=== PATIENT | female | born 1960 | race American Indian/Alaskan Native ===

== ENCOUNTER 2020-12-08 13:24 | Outpatient (AMBR) | payer MEDICAID, OTHER, SELFPAY ==
--- NOTE | 2020-11-15 18:06 | PT.ODAYNRPT ---
PT Outpatient Daily Note Date of Service: 11/15/20 OP Daily Note Visit Reasons: left leg weakness Outpatient Physical Therapy Treatment Date: 11/15/20 Subjective: About the same as last visit. Doing HEP Objective: See F/S for therex Assessment: Pt is able to do partial body weight squats at about 35% body weight without much difficulty. Requires hand support to ambulate. She used the FWW here in the clinic and the parallel bars to try to lift the L LE and not catch it. Plan: Continue per POC Length of Time (minutes) of Treatment: 30 Minutes Office Procedures PT Procedures PT Date of Service: 11/15/20 Therapeutic Exercise 30 minutes: Yes
--- NOTE | 2020-11-17 17:26 | PT.ODAYNRPT ---
PT Outpatient Daily Note Date of Service: 11/17/20 OP Daily Note Visit Reasons: left leg weakness Outpatient Physical Therapy Treatment Date: 11/17/20 Subjective: About the same as last visit. Doing HEP with mild L quad soreness. Objective: See F/S for therex Assessment: Pt is able to do partial body weight squats at about 35% body weight without much difficulty. Requires hand support to ambulate. She used the FWW here in the clinic and the parallel bars to try to lift the L LE and not catch it. Plan: Continue per POC Length of Time (minutes) of Treatment: 30 Minutes Office Procedures PT Procedures PT Date of Service: 11/15/20 Therapeutic Exercise 30 minutes: Yes PT Procedures PT Date of Service: 11/17/20 Therapeutic Exercise 30 minutes: Yes
--- NOTE | 2020-11-28 18:34 | PTNOTE_ITS ---
PT Outpatient Daily Note Date of Service: 11/28/20 OP Daily Note Visit Reasons: left leg weakness Outpatient Physical Therapy Treatment Date: 11/28/20 Subjective: Pt presents ambulating with FWW. She wants to improve the L ankle movement and strength. Objective: See F/S for therex Assessment: Pt is able to stand erect and extend knees with gait with cues but tends to hunch. Requires hand support to ambulate for balance. She used the FWW here in the clinic and the parallel bars to try to lift the L LE and not catch i t. Plan: Continue per POC Length of Time (minutes) of Treatment: 30 Minutes Office Procedures PT Procedures PT Date of Service: 11/28/20 Therapeutic Exercise 30 minutes: Yes PT Procedures PT Date of Service: 11/15/20 Therapeutic Exercise 30 minutes: Yes PT Procedures PT Date of Service: 11/17/20 Therapeutic Exercise 30 minutes: Yes
--- NOTE | 2020-11-30 16:52 | PT.ODAYNRPT ---
PT Outpatient Daily Note Date of Service: 11/30/20 OP Daily Note Visit Reasons: left leg weakness Outpatient Physical Therapy Treatment Date: 11/30/20 Subjective: Pt presents ambulating with FWW. She wants to improve the L ankle movement and strength. Objective: See F/S for therex Assessment: Improved heel raise height and endurance with reps today. Plan: Continue per POC Length of Time (minutes) of Treatment: 30 Minutes Office Procedures PT Procedures PT Date of Service: 11/28/20 Therapeutic Exercise 30 minutes: Yes PT Procedures PT Date of Service: 11/15/20 Therapeutic Exercise 30 minutes: Yes PT Procedures PT Date of Service: 11/17/20 Therapeutic Exercise 30 minutes: Yes PT Procedures PT Date of Service: 11/30/20 Therapeutic Exercise 30 minutes: Yes
--- NOTE | 2020-12-05 19:41 | PT.ODAYNRPT ---
PT Outpatient Daily Note Date of Service: 12/05/20 OP Daily Note Visit Reasons: left leg weakness Outpatient Physical Therapy Treatment Date: 12/05/20 Subjective: Pt presents ambulating with FWW. She wants to improve the L ankle movement and strength. Objective: See F/S for therex Assessment: Improved heel raise height and endurance with reps today. Plan: Continue per POC Length of Time (minutes) of Treatment: 30 Minutes Office Procedures PT Procedures PT Date of Service: 11/28/20 Therapeutic Exercise 30 minutes: Yes PT Procedures PT Date of Service: 12/05/20 Therapeutic Exercise 30 minutes: Yes PT Procedures PT Date of Service: 11/15/20 Therapeutic Exercise 30 minutes: Yes PT Procedures PT Date of Service: 11/17/20 Therapeutic Exercise 30 minutes: Yes PT Procedures PT Date of Service: 11/30/20 Therapeutic Exercise 30 minutes: Yes
--- NOTE | 2020-12-08 15:30 | PT.ODAYNRPT ---
PT Outpatient Daily Note Date of Service: 12/08/20 OP Daily Note Visit Reasons: left leg weakness Outpatient Physical Therapy Treatment Date: 12/08/20 Subjective: Pt presents ambulating with FWW. She wants to improve the L ankle movement and strength. Objective: See F/S for therex Assessment: Improved heel raise height and endurance with reps today. Seems to be taking higher steps in the parallel bars and can do more laps before needing rest. Plan: Continue per POC Length of Time (minutes) of Treatment: 30 Minutes Office Procedures PT Procedures PT Date of Service: 11/28/20 Therapeutic Exercise 30 minutes: Yes PT Procedures PT Date of Service: 12/05/20 Therapeutic Exercise 30 minutes: Yes PT Procedures PT Date of Service: 12/08/20 Therapeutic Exercise 30 minutes: Yes PT Procedures PT Date of Service: 11/15/20 Therapeutic Exercise 30 minutes: Yes PT Procedures PT Date of Service: 11/17/20 Therapeutic Exercise 30 minutes: Yes PT Procedures PT Date of Service: 11/30/20 Therapeutic Exercise 30 minutes: Yes
== END 2020-12-11 23:59 | disposition home or self-care (01) ==
PROVIDERS: PCP Nurse Practitioner Family; Referring Provider Nurse Practitioner Family; Visit Provider Nurse Practitioner Family
DX: R29.898 Other symptoms and signs involving the musculoskeletal system (principal); R53.1 Weakness; I10 Essential (primary) hypertension; E11.9 Type 2 diabetes mellitus without complications; R26.2 Difficulty in walking, not elsewhere classified
CPT/HCPCS: 97110

== ENCOUNTER 2020-12-28 14:17 | Outpatient (AMBR) | payer MEDICAID, OTHER, SELFPAY ==
--- NOTE | 2020-12-12 19:42 | PTNOTE_ITS ---
PT Outpatient Daily Note Date of Service: 12/12/20 OP Daily Note Visit Reasons: left leg weakness Outpatient Physical Therapy Treatment Date: 12/12/20 Subjective: About the same as last visit Objective: See F/S for therex Assessment: Pt is lifting the L Le better to step over cones and can do partial body weight squatting with good reps. Plan: Continue per POC Length of Time (minutes) of Treatment: 30 Minutes Office Procedures PT Procedures PT Date of Service: 12/12/20 Therapeutic Exercise 30 minutes: Yes
--- NOTE | 2020-12-19 16:08 | PT.ODAYNRPT ---
PT Outpatient Daily Note Date of Service: 12/19/20 OP Daily Note Visit Reasons: left leg weakness Outpatient Physical Therapy Treatment Date: 12/19/20 Subjective: Doing fine, not much change since last visit Objective: See F./S for therex Assessment: Pt is able to lift L LE over cones better with improved WB tolerance on L in stance phase. Plan: Continue per POC Length of Time (minutes) of Treatment: 30 Minutes Office Procedures PT Procedures PT Date of Service: 12/19/20 Therapeutic Exercise 30 minutes: Yes
--- NOTE | 2020-12-22 19:14 | PT.ODAYNRPT ---
PT Outpatient Daily Note Date of Service: 12/22/20 OP Daily Note Visit Reasons: left leg weakness Outpatient Physical Therapy Treatment Date: 12/22/20 Subjective: Doing fine, she can walk better since starting therapy. Objective: See F./S for therex Assessment: Pt is able to lift L LE over cones better with improved WB tolerance on L in stance phase but still ambulates with trunk flexion and knee flexion L>R LE's. Plan: Continue per POC Length of Time (minutes) of Treatment: 30 Minutes Office Procedures PT Procedures PT Date of Service: 12/19/20 Therapeutic Exercise 30 minutes: Yes PT Procedures PT Date of Service: 12/22/20 Therapeutic Exercise 30 minutes: Yes
--- NOTE | 2020-12-28 19:07 | PT.ODAYNRPT ---
PT Outpatient Daily Note Date of Service: 12/28/20 OP Daily Note Visit Reasons: left leg weakness Outpatient Physical Therapy Treatment Date: 12/28/20 Subjective: Doing fine, she can walk better since starting therapy. Going for neck MRI tomorrow. Objective: See F/S for therex Assessment: Pt is able to lift L LE over cones better with improved WB tolerance on L in stance phase but still ambulates with trunk flexion and knee flexion L>R LE's. Plan: Continue per POC Length of Time (minutes) of Treatment: 30 Minutes Office Procedures PT Procedures PT Date of Service: 12/19/20 Therapeutic Exercise 30 minutes: Yes PT Procedures PT Date of Service: 12/22/20 Therapeutic Exercise 30 minutes: Yes PT Procedures PT Date of Service: 12/28/20 Therapeutic Exercise 30 minutes: Yes
== END 2021-01-08 23:59 | disposition home or self-care (01) ==
PROVIDERS: PCP Nurse Practitioner Family; Referring Provider Nurse Practitioner Family; Visit Provider Nurse Practitioner Family
DX: R29.898 Other symptoms and signs involving the musculoskeletal system (principal); R26.2 Difficulty in walking, not elsewhere classified; R53.1 Weakness; I10 Essential (primary) hypertension; E11.9 Type 2 diabetes mellitus without complications
CPT/HCPCS: 97110

== ENCOUNTER 2021-01-30 13:20 | Outpatient (AMBR) | payer MEDICAID, OTHER, SELFPAY ==
--- NOTE | 2021-01-09 17:15 | PT.ODAYNRPT ---
PT Outpatient Daily Note Date of Service: 01/09/21 OP Daily Note Visit Reasons: left leg weakness Outpatient Physical Therapy Treatment Date: 01/09/21 Subjective: Feels a little stronger since starting therapy in her legs and with getting up from a chair Objective: See F/S for therex Assessment: Pt better able to ascend/descend stairs today with hand railing. Plan: Continue per POC Length of Time (minutes) of Treatment: 30 Minutes Office Procedures PT Procedures PT Date of Service: 01/09/21 Therapeutic Exercise 30 minutes: Yes
--- NOTE | 2021-01-11 19:04 | PT.ODS1RPT ---
PT OP Progress/Discharge Note Date of Service: 01/11/21 Progress Note/DC Note Progress Note/Discharge Note: Progress Note Patient Information Visit Reasons: left leg weakness Service Continue Service or Discharge: Continue Service Status Subjective: Pt reports she can walk better and her LE's feel stronger since starting therapy. Objective: L ankle AROM: DF: to 3 deg PF: 45 deg Strength: DF: 4-/5 PF: can do B heel raises x20 Gait: ambulates with 4WW and clears L foot during swing phase. Assessment: Pt has attended 12 visits and made good progress with therapy goals. She has almost met L ankle DF ROM goal and has been ambulating HH distances and from car to building with walker and without catching foot. She would benefit from continued therapy in order to ambulate further, more than 1 [address] and improve DF ROM to more than 5 deg. Plan: Extend POC for 6 more visits Office Procedures PT Procedures PT Date of Service: 01/09/21 Therapeutic Exercise 30 minutes: Yes PT Procedures PT Date of Service: 01/11/21 Therapeutic Exercise 30 minutes: Yes
--- NOTE | 2021-01-16 16:27 | PT.ODAYNRPT ---
PT Outpatient Daily Note Date of Service: 01/16/21 OP Daily Note Visit Reasons: left leg weakness Outpatient Physical Therapy Treatment Date: 01/16/21 Subjective: Pt reports she can walk better and her LE's feel stronger since starting therapy. Objective: See f/S for therex Assessment: She has almost met L ankle DF ROM goal and has been ambulating HH distances and from car to building with walker and without catching foot. She would benefit from continued therapy in order to ambulate further, more than 1 [address] and improve DF ROM to more than 5 deg. Plan: Continue per POC Length of Time (minutes) of Treatment: 30 Minutes Office Procedures PT Procedures PT Date of Service: 01/09/21 Therapeutic Exercise 30 minutes: Yes PT Procedures PT Date of Service: 01/11/21 Therapeutic Exercise 30 minutes: Yes PT Procedures PT Date of Service: 01/16/21 Therapeutic Exercise 30 minutes: Yes
--- NOTE | 2021-01-19 14:36 | PT.ODAYNRPT ---
PT Outpatient Daily Note Date of Service: 01/19/21 OP Daily Note Visit Reasons: left leg weakness Outpatient Physical Therapy Treatment Date: 01/19/21 Subjective: Pt reports her feet don't feel coordinated when she walks Objective: See f/S for therex Assessment: Today pt tried ambulating with 4 point cane today and was cautious and slow. Pt has discontinuous steps on L but can ambulate with cane with fwd trunk lean that she corrects with cues. Plan: Continue per POC Length of Time (minutes) of Treatment: 30 Minutes Office Procedures PT Procedures PT Date of Service: 01/09/21 Therapeutic Exercise 30 minutes: Yes PT Procedures PT Date of Service: 01/11/21 Therapeutic Exercise 30 minutes: Yes PT Procedures PT Date of Service: 01/19/21 Therapeutic Exercise 30 minutes: Yes PT Procedures PT Date of Service: 01/16/21 Therapeutic Exercise 30 minutes: Yes
--- NOTE | 2021-01-23 16:29 | PT.ODAYNRPT ---
PT Outpatient Daily Note Date of Service: 01/23/21 OP Daily Note Visit Reasons: left leg weakness Outpatient Physical Therapy Treatment Date: 01/23/21 Subjective: Pt is willing to walk with cane today Objective: See f/S for therex Assessment: Today pt tried ambulating with 4 point cane today and was cautious and slow. Pt has discontinuous steps on L but can ambulate with cane with fwd trunk lean that she corrects with cues. Pt ambulates with decreased ankle DF and increased hip flexion and short step length. Plan: Continue per POC Length of Time (minutes) of Treatment: 30 Minutes Office Procedures PT Procedures PT Date of Service: 01/09/21 Therapeutic Exercise 30 minutes: Yes PT Procedures PT Date of Service: 01/11/21 Therapeutic Exercise 30 minutes: Yes PT Procedures PT Date of Service: 01/19/21 Therapeutic Exercise 30 minutes: Yes PT Procedures PT Date of Service: 01/23/21 Therapeutic Exercise 30 minutes: Yes PT Procedures PT Date of Service: 01/16/21 Therapeutic Exercise 30 minutes: Yes
--- NOTE | 2021-01-30 19:34 | PT.ODS1RPT ---
PT OP Progress/Discharge Note Date of Service: 01/30/21 Progress Note/DC Note Progress Note/Discharge Note: DC Note Patient Information Visit Reasons: left leg weakness Service Continue Service or Discharge: Discharge Discharge Date: 01/30/21 Status Subjective: Pt is willing to walk with cane today Objective: L aknle AROM: DF: 5 deg PF: 45 deg Strength: DF: 4-/5 deg Heel raises: x20 Assessment: Pt has attended Rx visits and made progress with therapy goals. She has met L ankle DF ROM goal. Today pt tried ambulating with single point cane today and was cautious and slow but steady. Pt has discontinuous steps on L but can ambulate with cane with fwd trunk lean that she corrects with cues. Pt ambulates with decreased ankle DF and increased hip flexion and short step length. Progress has plateaued with goals. She should be able to ambulate with SPC on even surfaces if she is feeling like her balance is steady that day. Plan: D/C with HEP. Office Procedures PT Procedures PT Date of Service: 01/09/21 Therapeutic Exercise 30 minutes: Yes PT Procedures PT Date of Service: 01/11/21 Therapeutic Exercise 30 minutes: Yes PT Procedures PT Date of Service: 01/19/21 Therapeutic Exercise 30 minutes: Yes PT Procedures PT Date of Service: 01/23/21 Therapeutic Exercise 30 minutes: Yes PT Procedures PT Date of Service: 01/16/21 Therapeutic Exercise 30 minutes: Yes PT Procedures PT Date of Service: 01/30/21 Therapeutic Exercise 30 minutes: Yes
== END 2021-02-08 23:59 | disposition home or self-care (01) ==
PROVIDERS: PCP Nurse Practitioner Family; Referring Provider Nurse Practitioner Family; Visit Provider Nurse Practitioner Family
DX: R29.898 Other symptoms and signs involving the musculoskeletal system (principal); R53.1 Weakness; R26.2 Difficulty in walking, not elsewhere classified; I10 Essential (primary) hypertension
CPT/HCPCS: 97110

== ENCOUNTER 2024-10-12 10:29 | Outpatient (RCR) | payer MEDICAID, SELFPAY | END 2024-11-10 23:59 | disposition home or self-care (01) | LOC: CPTX 10:29 | PROVIDERS: PCP Nurse Practitioner Family; Referring Provider Nurse Practitioner Family; Visit Provider Nurse Practitioner Family | DX: Z53.8 Procedure and treatment not carried out for other reasons (principal) ==

== ENCOUNTER → 2024-10-29 | Outpatient (CLI) | payer MEDICAID, SELFPAY ==
--- NOTE | 2024-10-29 13:31 | XR_ITS ---
Examination: Right knee 4 views TECHNIQUE: AP oblique lateral axial right knee 4 views Exam date and time: 05/29/2024 at 1409 hours INDICATIONS: Knee pain 2 years. FINDINGS: Sclerotic areas in the fibular head and neck perhaps old bone infarct Moderate to advanced narrowing medial joint space Moderate osteoarthritis patellofemoral joint lateral joint space No fracture Significant osteopenia IMPRESSION: Moderate to advanced tricompartment osteoarthritis
== END | disposition home or self-care (01) ==
LOC: CDIM 13:23
PROVIDERS: PCP Internal Medicine; Referring Provider Internal Medicine; Visit Provider Internal Medicine
DX: M17.11 Unilateral primary osteoarthritis, right knee (principal)
CPT/HCPCS: 73564

== ENCOUNTER → 2024-12-01 | Outpatient (CLI) | payer MEDICAID, SELFPAY ==
--- NOTE | 2024-12-01 10:30 | XR_ITS ---
Examination: CTA carotids with intravenous contrast CTA brain, head with intravenous contrast. 2-D sagittal, coronal reconstructions. 3-D reconstructions. Exam date and time: December 01, 2024 1044 hours INDICATIONS: Neck pain dizziness 3 years, history aortic aneurysm, weakness in the left extremities left leg beginning 2021 CTDI: vol (mGy) 24.6 DLP: (mGycm) 399 Technique: Multiple CTA axial brain, head carotid images post intravenous contrast injection 75 cc, [id number]. 2-D sagittal, coronal reconstructions. 3-D reconstructions, 3-D post processing including vascular maximum intensity projection images. Low dose protocols were performed. One or more of the following dose reduction techniques were used; automated exposure control, adjustment of the mA and/or KV according to patient size, use of iterative reconstruction technique. Findings: Partial visualization thoracic aortic stent No significant common carotid carotid bifurcation or internal carotid artery stenoses Dominant right vertebral artery No filling of the distal left vertebral artery in the neck No cerebral large vessel arterial occlusions IMPRESSION: No filling of the atretic distal left vertebral artery in the neck, recommend carotid vertebral Doppler sonography to assess for retrograde flow in the left vertebral artery
== END | disposition home or self-care (01) ==
LOC: CCTX 10:18
PROVIDERS: PCP Internal Medicine; Referring Provider Internal Medicine; Visit Provider Internal Medicine
DX: R42 Dizziness and giddiness (principal); R26.89 Other abnormalities of gait and mobility
CPT/HCPCS: 70498; A4649; Q9967

== ENCOUNTER 2024-12-08 13:30 | Outpatient (RCR) | payer MEDICAID, SELFPAY ==
--- NOTE | 2024-12-04 11:35 | PT.OIERPT ---
PT OP Initial Eval Patient Information Outpatient Physical Therapy Treatment Date: 12/04/24 Visit Reasons: weakness of right lower extremity Medical Diagnosis: R29.898 Treatment Dx #1: Right LE Weakness Treatment Dx #2: Abnormal Gait Start of Care: 12/04/24 Date of Onset: 6 months ago Smoking Status Smoking Status: Never smoker Initial Assessment Subjective: Pt is a 64 y/o female reports of right LE pain and weakness up to her knee. Pt's most recent xray showed moderate to severe knee OA. Furthermore, Pt's lumbar spine MRI showed multiple disc where she has seen a surgeon but is unsure if she's surgery candidate. Pt has limitation with walking, standing, chores, self care, cooking, cleaning, and balance. Objective: Right LE AROM: all motions are WFL Right LE MMTs: grossly 3+/5 Sit-Stand Test: 5 reps Assessment: Pt demonstrate right LE weakness leading to difficulty with ADLs and ambulation. 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
== END 2024-12-11 23:59 | disposition home or self-care (01) ==
LOC: CPTX 13:30
PROVIDERS: PCP Nurse Practitioner Family; Referring Provider Nurse Practitioner Family; Visit Provider Nurse Practitioner Family
DX: M79.604 Pain in right leg (principal); R53.1 Weakness; R29.898 Other symptoms and signs involving the musculoskeletal system; M17.11 Unilateral primary osteoarthritis, right knee; R26.89 Other abnormalities of gait and mobility; R26.2 Difficulty in walking, not elsewhere classified
CPT/HCPCS: 97162

== ENCOUNTER 2025-01-08 13:00 | Outpatient (RCR) | payer MEDICAID, SELFPAY ==
--- NOTE | 2024-12-15 11:34 | PT.ODAYNRPT ---
PT Outpatient Daily Note OP Daily Note Outpatient Physical Therapy Treatment Date: 12/15/24 Visit Reasons: weakness of lower extremity Subjective: Pt reports her R knee is bothering her today, although pt is aware that she has R knee bone on bone . Objective: Please see flow sheet for ther ex list. Assessment: Interventions given alternating sitting and standing to maximize pt participation. Plan: Continue with pOC. Length of Time (minutes) of Treatment: 30 Minutes Procedure Charges MCL Initial 30 minutes: Yes
--- NOTE | 2024-12-17 11:31 | PT.ODAYNRPT ---
PT Outpatient Daily Note OP Daily Note Outpatient Physical Therapy Treatment Date: 12/17/24 Visit Reasons: weakness of lower extremity Subjective: Pt's legs are okay. Slight dizziness this morning but not too bad. Objective: Please see flow chart for list of ther ex performed Assessment: slight dizziness reported with retro monster walk and require rest break. Pt is overall progressing with strengthening exercises Plan: Continue with PT Length of Time (minutes) of Treatment: 30 Minutes Procedure Charges MCL Initial 30 minutes: Yes
--- NOTE | 2024-12-22 12:13 | PT.ODAYNRPT ---
PT Outpatient Daily Note OP Daily Note Outpatient Physical Therapy Treatment Date: 12/22/24 Visit Reasons: weakness of lower extremity Subjective: Pt's feeling more dizziness today. Pt prefers to stick to seated exercises Objective: Please see flow chart for list of ther ex performed Assessment: performed seated exercises with good tolerance. Monster walk and side step not performed today due to reported of increase dizziness. Plan: Continue with PT Length of Time (minutes) of Treatment: 30 Minutes Procedure Charges MCL Initial 30 minutes: Yes
--- NOTE | 2024-12-24 11:34 | PT.ODAYNRPT ---
PT Outpatient Daily Note OP Daily Note Outpatient Physical Therapy Treatment Date: 12/24/24 Visit Reasons: weakness of lower extremity Subjective: Pt's less dizzy today and wants to work on standing exercises Objective: Please see flow chart for list of ther ex performed Assessment: able to complete standing exercises today with minimal complaint of dizziness. Plan: Continue with PT Length of Time (minutes) of Treatment: 30 Minutes Procedure Charges Therapeutic Exercise 30 minutes: Yes
--- NOTE | 2024-12-29 15:21 | PT.ODAYNRPT ---
PT Outpatient Daily Note OP Daily Note Outpatient Physical Therapy Treatment Date: 12/29/24 Visit Reasons: weakness of lower extremity Subjective: No new complaints or concerns. Objective: Please see flow sheet for ther ex list. Assessment: Interventions given in sitting to maximize pt participation. Plan: Continue with pOC. Length of Time (minutes) of Treatment: 30 Minutes Procedure Charges MCL Initial 30 minutes: Yes
--- NOTE | 2025-01-05 11:36 | PT.ODAYNRPT ---
PT Outpatient Daily Note OP Daily Note Outpatient Physical Therapy Treatment Date: 01/05/25 Visit Reasons: weakness of lower extremity Subjective: Pt continues to have dizziness but up to do standing exercises today. Objective: Please see flow chart for list of ther ex performed Assessment: tolerate exercises and pace throughout PT session due to dizziness feeling. Plan: Continue with PT Length of Time (minutes) of Treatment: 30 Minutes Procedure Charges Therapeutic Exercise 30 minutes: Yes
--- NOTE | 2025-01-08 13:27 | PT.ODAYNRPT ---
PT Outpatient Daily Note OP Daily Note Outpatient Physical Therapy Treatment Date: 01/08/25 Visit Reasons: weakness of lower extremity Subjective: Pt reports he is doing better today compared to last session. Objective: Please see flow sheet for ther ex list. Assessment: Pt demonstrates increase tolerance with closed chain interventions today indicating progress. Plan: Continue with pOC. Length of Time (minutes) of Treatment: 30 Minutes Procedure Charges MCL Initial 30 minutes: Yes
== END 2025-01-08 23:59 | disposition home or self-care (01) ==
LOC: CPTX 13:00
PROVIDERS: PCP Nurse Practitioner Family; Referring Provider Nurse Practitioner Family; Visit Provider Nurse Practitioner Family
DX: R53.1 Weakness (principal); R26.2 Difficulty in walking, not elsewhere classified; R26.89 Other abnormalities of gait and mobility; R29.898 Other symptoms and signs involving the musculoskeletal system
CPT/HCPCS: 97110

== ENCOUNTER 2025-02-01 14:30 | Outpatient (RCR) | payer MEDICAID, SELFPAY ==
--- NOTE | 2025-01-19 15:03 | PT.ODAYNRPT ---
PT Outpatient Daily Note OP Daily Note Outpatient Physical Therapy Treatment Date: 01/19/25 Visit Reasons: Weakness of lower extremity Subjective: Pt reports she is doing ok, no changes to report at this time. Objective: Please see flow sheet for ther ex list. Assessment: Interventions given alternating sitting and standing to maximize pt participation. Pt requires rest breaks due to fatigue. Plan: Continue with POC. Length of Time (minutes) of Treatment: 30 Minutes Procedure Charges MCL Initial 30 minutes: Yes
--- NOTE | 2025-01-25 15:01 | PT.ODAYNRPT ---
PT Outpatient Daily Note OP Daily Note Outpatient Physical Therapy Treatment Date: 01/25/25 Visit Reasons: Weakness of lower extremity Subjective: No new complaints. Objective: Please see flow sheet for ther ex list. 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 Plan: Continue with pOC. Procedure Charges MCL Initial 30 minutes: Yes
--- NOTE | 2025-02-01 15:07 | PT.ODS1RPT ---
PT OP Progress/Discharge Note Date of Service: 02/01/25 Progress Note/DC Note Progress Note/Discharge Note: Progress Note Patient Information Visit Reasons: Weakness of lower extremity Medical Diagnosis: R29.898 Treatment Dx #1: Right LE Weakness Treatment Dx #2: Abnormal Gait Service Continue Service or Discharge: Continue Service Certification Date Certification Dates: 02/01/25 to 05/04/25 Status Subjective: Pt's legs are feeling okay. Depended upon Pt's dizziness Pt can do more or less. Pt notice lately she's been able to stand, walk, and perform chores a little longer. Pt's right leg is feeling slightly stronger. Pt is being refer out to a ENT for her ears and balance issue soon. Objective: Right LE AROM: all motions are WNL Right LE MMTs: grossly 4-/5 Sit-Stand Test: 7 reps Assessment: Pt is slowly improving with right LE strength and mobility allowing her to perform light ADLs, ambulate, and stand with less limitation. Pt has not met set goals and will continue to benefit from physical therapy to work on endurance and strength; thank you for your referrals. Plan: Continue with PT/POC and add 8 sessions (2 x wk for 4 wks) Procedure Charges MCL Initial 30 minutes: Yes
== END 2025-02-08 23:59 | disposition home or self-care (01) ==
LOC: CPTX 14:30
PROVIDERS: PCP Nurse Practitioner Family; Referring Provider Nurse Practitioner Family; Visit Provider Nurse Practitioner Family
DX: M79.604 Pain in right leg (principal); R26.2 Difficulty in walking, not elsewhere classified; R29.898 Other symptoms and signs involving the musculoskeletal system; R53.1 Weakness; R26.89 Other abnormalities of gait and mobility; R42 Dizziness and giddiness

== ENCOUNTER → 2025-02-16 | Outpatient (CLI) | payer MEDICAID, OTHER, SELFPAY ==
--- NOTE | 2025-02-16 12:45 | XR_ITS ---
Examinations: MRI Brain without intravenous contrast. MRI brain with intravenous contrast MRA brain with intravenous contrast. MRA brain without intravenous contrast MRA neck with intravenous contrast Date and time of exam: February 16, 2025 1255 hrs. Comparison February 12, 2023 Indications: Headaches dizziness for years worse the last 6 months Technique: Multiple axial and sagittal images of the brain have been obtained Siemens high-resolution 1.5 Cortney short bore scanner is utilized. Sagittal sections, T1-weighted, TR 500, TE 14 Axial sections proton density and T2-weighted, TR 3,000, TE 34, TR 3,000, TE 91 Inversion recovery axial images, TR 9,260, TE 111, TI 2,500 Diffusion weighted images, axial sections, TR 4,800, TE 128, B value 1,000 Axial sections, ADC map, TR 4,800, TE 128. Contrast images have been obtained post intravenous 20 cc Gadolinium. T1-weighted axial and coronal images post contrast have been obtained. Angiographic images of neck and brain are obtained pre and post contrast. 3-D post processing performed, including brain, extracranial neck arterial maximum intensity projections Findings: Sellaturcica is not enlarged. The optic chiasm and infundibular stalk are not remarkable. Prepontine and interpeduncular cisterns are not enlarged. No localized enlargement of the medulla or sonu. Fourth ventricle and cerebellar tonsils normal in position. Subacute hemorrhage is not seen. Fourth ventricle is midline. Mass in the cerebellopontine angle region is not evident. 7th and 8th nerve complexes exhibits symmetry. Globes are symmetrical with no retro-orbital mass. Increased white matter signal prominent Diffusion-weighted images demonstrateno focus of restricted diffusion. Mass-effect upon the ventricular system is not identified. Abnormal contrast enhancement is not seen. MRA brain carotid images no significant carotid stenoses, mild to moderate diffuse cerebral arterial irregularity Impression: Negative for acute hemorrhage mass effect or midline shift No acute infarct Prominent chronic microvascular white matter change No abnormal enhancing cerebellar or cerebral lesions Mild to moderate diffuse cerebral arterial irregularity
== END | disposition home or self-care (01) ==
LOC: SMRI 11:59
PROVIDERS: PCP Internal Medicine; Referring Provider Internal Medicine; Visit Provider Internal Medicine
DX: R90.82 White matter disease, unspecified (principal)
CPT/HCPCS: 70546; 70548; 70553; A9579

== ENCOUNTER 2025-03-04 11:30 | Outpatient (RCR) | payer MEDICAID, SELFPAY ==
--- NOTE | 2025-02-09 11:35 | PT.ODAYNRPT ---
PT Outpatient Daily Note OP Daily Note Outpatient Physical Therapy Treatment Date: 02/09/25 Visit Reasons: weakness of lower extremity Subjective: Pt feels really dizzy today. Pt will like to do more seated exercises. Her dizziness started ~ 3 days ago. Objective: Please see flow chart for list of ther ex performed Assessment: tolerate all seated exercises. standing exercises hold due to dizziness symptoms Plan: Continue with PT Length of Time (minutes) of Treatment: 30 Minutes Procedure Charges MCL Initial 30 minutes: Yes
--- NOTE | 2025-03-02 12:57 | PT.ODAYNRPT ---
PT Outpatient Daily Note OP Daily Note Outpatient Physical Therapy Treatment Date: 03/02/25 Visit Reasons: weakness of lower extremity Subjective: Pt's legs are feeling weaker since she has been doing much at home. Pt is dizzy today and wants to go easy. Objective: Please see flow chart for list of ther ex performed Assessment: pacing throughout session today due to patient feeling dizzy. Pt was able to complete instructed exercises safely today Plan: Continue with PT Length of Time (minutes) of Treatment: 30 Minutes Procedure Charges MCL Initial 30 minutes: Yes
--- NOTE | 2025-03-04 13:17 | PT.ODAYNRPT ---
PT Outpatient Daily Note OP Daily Note Outpatient Physical Therapy Treatment Date: 03/04/25 Visit Reasons: weakness of lower extremity Subjective: Pt reports her dizziness has been worse these last few days. Objective: Please see flow sheet for ther ex list. Assessment: Pt unsteady with initial standing from chair due to dizzness. Plan: Continue with POC. Length of Time (minutes) of Treatment: 30 Minutes Procedure Charges MCL Initial 30 minutes: Yes
== END 2025-03-10 23:59 | disposition home or self-care (01) ==
LOC: CPTX 11:30
PROVIDERS: PCP Nurse Practitioner Family; Referring Provider Nurse Practitioner Family; Visit Provider Nurse Practitioner Family
DX: M79.604 Pain in right leg (principal); R53.1 Weakness; R26.2 Difficulty in walking, not elsewhere classified; R26.89 Other abnormalities of gait and mobility; M17.11 Unilateral primary osteoarthritis, right knee

== ENCOUNTER → 2025-03-16 | Outpatient (CLI) | payer MEDICAID, SELFPAY ==
--- NOTE | 2025-03-16 12:49 | XR_ITS ---
Examination: Lumbar spine 7 views TECHNIQUE: AP, lateral, coned lateral lower lumbar spine, standing lateral flexion, standing lateral extension, FORMAN, TUNISIAN lumbar spine 7 views Exam date and time: March 16, 2025 1331 hours INDICATIONS: Low back pain several years. FINDINGS: Severe osteopenia No lumbar fracture Mild to moderate diffuse lumbar disc narrowing Grade 1 anterolisthesis L5 on S1 Markedly reduced range of motion between flexion and extension IMPRESSION: Mild to moderate diffuse lumbar degenerative disc disease
[2025-03-16 13:15] LABS: Blood Urea Nitrogen 25 mg/dL (9-23); Creatinine (Component) 1.2 mg/dL (0.6-1.3); eGFR 51 See Note
== END | disposition home or self-care (01) ==
LOC: COPL 12:19
PROVIDERS: Surgery Vascular Surgery; PCP Physician Assistant; Referring Provider Physician Assistant; Visit Provider Radiology Diagnostic Radiology
DX: M51.369 Other intervertebral disc degeneration, lumbar region without mention of lumbar back pain or lower extremity pain (principal); I71.019 Dissection of thoracic aorta, unspecified
CPT/HCPCS: 36415; 72114; 82565; 84520

== ENCOUNTER 2025-03-30 11:30 | Outpatient (RCR) | payer MEDICAID, SELFPAY ==
--- NOTE | 2025-03-11 12:42 | PTNOTE_ITS ---
PT Outpatient Daily Note OP Daily Note Outpatient Physical Therapy Treatment Date: 03/11/25 Visit Reasons: lower extremity weakness Subjective: Pt reports she is doing ok, says dizziness is mild today. Objective: Please see flow sheet for ther ex list. Assessment: Progression of intervention slow, pt c/o increase dizziness with dynamic exercises. 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 Plan: Continue with POC. Length of Time (minutes) of Treatment: 30 Minutes Procedure Charges MCL Initial 30 minutes: Yes
--- NOTE | 2025-03-16 12:00 | PT.ODAYNRPT ---
PT Outpatient Daily Note OP Daily Note Outpatient Physical Therapy Treatment Date: 03/16/25 Visit Reasons: lower extremity weakness Subjective: Pt is dizzy today. Pt is always dizzy and is pending ENT consult. Objective: Please see flow chart for list of ther ex perfomed Assessment: frequent rest break today due dizziness spell. Pt advised to seek further medical attention regarding dizziness since it's limiting progression with physical therapy Plan: Continue with PT Length of Time (minutes) of Treatment: 30 Minutes Procedure Charges MCL Initial 30 minutes: Yes
--- NOTE | 2025-03-18 11:55 | PT.ODAYNRPT ---
PT Outpatient Daily Note OP Daily Note Outpatient Physical Therapy Treatment Date: 03/18/25 Visit Reasons: lower extremity weakness Subjective: Pt's legs are stronger. Pt still has dizzy spell intermittently. Objective: Please see flow chart for list of ther ex performed Assessment: improved sit to stand form with minimal use of hands and able to complete exercises faster indicating LE endurance improvement. Plan: Continue with PT Length of Time (minutes) of Treatment: 30 Minutes Procedure Charges MCL Initial 30 minutes: Yes
--- NOTE | 2025-03-23 13:10 | PT.ODAYNRPT ---
PT Outpatient Daily Note OP Daily Note Outpatient Physical Therapy Treatment Date: 03/23/25 Visit Reasons: lower extremity weakness Subjective: Pt c/o moderate dizziness today. Objective: Please see flow sheet for ther ex list. Assessment: Interventions completed with rest breaks in between reps due to worsening dizziness with activity. Plan: Continue with POC. Length of Time (minutes) of Treatment: 30 Minutes Procedure Charges MCL Initial 30 minutes: Yes
--- NOTE | 2025-03-25 12:52 | PT.ODAYNRPT ---
PT Outpatient Daily Note OP Daily Note Outpatient Physical Therapy Treatment Date: 03/25/25 Visit Reasons: lower extremity weakness Subjective: Pt has been more dizzy lately. Pt is unsure of her ENT appt; it's still pending. Objective: Please see flow chart for list of ther ex performed Assessment: multiple dizzy spell noted in today's session where most exercises was performed seated. Plan: Continue with PT Length of Time (minutes) of Treatment: 30 Minutes Procedure Charges MCL Initial 30 minutes: Yes
--- NOTE | 2025-03-30 12:45 | PT.ODS1RPT ---
PT OP Progress/Discharge Note Date of Service: 03/30/25 Progress Note/DC Note Progress Note/Discharge Note: DC Note Patient Information Visit Reasons: lower extremity weakness Medical Diagnosis: R29.898 Treatment Dx #1: Right LE Weakness Treatment Dx #2: Abnormal Gait Service Continue Service or Discharge: Discharge Discharge Date: 03/30/25 Status Subjective: Pt's dizziness is getting worse. Pt mentioned that she's been able to do less around the house. Pt has limitation with prolonged walking, standing, and performing chores. Pt has a pending appt with ENT. Objective: Right LE AROM: all motions are WNL Right LE MMTs: grossly 4/5 Sit-Stand Test: 10 reps Assessment: Pt demonstrate improved right LE strength and mobility, however, reports of worsening dizzy spell leading to difficulty with ADLs. At this time Pt will no longer benefit from physical therapy due to plateau towards goals. Pt was instructed on HEP last session and educated to continue exercises to maintain overall mobility. Pt performed all exercises safely, thank you for your referrals. Plan: D/C home with HEP and follow up with MD WAGNER Procedure Charges MCL Initial 30 minutes: Yes
== END 2025-04-10 23:59 | disposition home or self-care (01) ==
LOC: CPTX 11:30
PROVIDERS: PCP Nurse Practitioner Family; Referring Provider Nurse Practitioner Family; Visit Provider Nurse Practitioner Family
DX: M79.604 Pain in right leg (principal); R53.1 Weakness; R26.2 Difficulty in walking, not elsewhere classified; R26.89 Other abnormalities of gait and mobility; R29.898 Other symptoms and signs involving the musculoskeletal system; M17.11 Unilateral primary osteoarthritis, right knee

== ENCOUNTER → 2025-05-17 | Outpatient (CLI) | payer MEDICAID, SELFPAY ==
--- NOTE | 2025-05-17 12:45 | XR_ITS ---
Examination: MRI lumbar spine without contrast Date and time of exam: May 17, 2025 1354 hours Comparison April 01, 2024 INDICATIONS: Low back pain 20 years COMPARISON: 08/02 2024. Technique: Multiple MRI axial and sagittal sections lumbar spine. Sagittal T2-weighted images, TR 3500, TE 118 T1 weighted transverse sections, TR 688 T8.5, T2-weighted sagittal sections T1 weighted sagittal sections TR 621, TE 30 T2 axial sections, TR 4, 190, TE 84. Findings: Grade 1 spondylolisthesis L5 on S1 No lumbar fracture Normal marrow signal lumbar vertebral bodies Moderate disc narrowing at the lower 3 lumbar levels L5-S1 4 mm central lumbar disc bulge, mild left moderate right L5 ganglionic compression secondary to the disc bulge and spondylolisthesis L4-L5 4 mm central lumbar disc bulge L3-L4 3 mm central lumbar disc bulge L2-L3 no disc protrusion L1-L2 no disc protrusion IMPRESSION: L5-S1 4 mm central lumbar disc bulge mild left moderate right L5 ganglionic compression L4-L5 4 mm central lumbar disc bulge. L3-L4 3 mm central lumbar disc bulge
== END | disposition home or self-care (01) ==
LOC: SMRI 12:31
PROVIDERS: PCP Nurse Practitioner Family
DX: M51.370 Other intervertebral disc degeneration, lumbosacral region with discogenic back pain only (principal); M51.360 Other intervertebral disc degeneration, lumbar region with discogenic back pain only; G95.20 Unspecified cord compression
CPT/HCPCS: 72148

== ENCOUNTER → 2025-08-18 | Outpatient (CLI) | payer MEDICAID, SELFPAY ==
--- NOTE | 2025-08-18 11:45 | XR_ITS ---
Examination: MRI brain without intravenous contrast. Date and time of exam: August 18, 2025, 1330 hours, comparison February 16, 2025 INDICATIONS: Frequent falls, severe dizziness beginning 2020, worse the last 7 months Technique: Multiple axial and sagittal images of the brain obtained. Siemens high-resolution 1.5 [place]ney short bore scanners utilized. Sagittal sections, T1-weighted, TR 500, TE 14, are performed. Axial sections proton-density and T2-weighted have been obtained. Inversion recovery axial images, TR 9, 260, TE 111, TI 2500. Diffusion weighted images, axial sections, TR 4800, TE 128, B value 1000 Axial sections, ADC map, TR 4800, TE 128 Findings: Enlargement of the sella turcica is not present. The optic chiasm and infundibular are not remarkable. Prepontine and interpeduncular cisterns are not enlarged. There is no localized enlargement of the medulla or sonu. Fourth ventricle and cerebellar tonsils appear normal in position. No subacute area of hemorrhage density is seen. Mass in the cerebellopontine angle region is not evident. Globes symmetrical. Orbital musculature including medial lateral rectus muscles do not exhibit abnormality. Diffusion-weighted images demonstrate no focus of restricted diffusion. Increased white matter signal prominent Mass effect upon the ventricular system is not identified. Impression: Negative for acute hemorrhage mass effect or midline shift No acute infarct Prominent microvascular white matter change, consider accelerated chronic microvascular white matter change, demyelinating disease, clinical correlation advised
== END | disposition home or self-care (01) ==
LOC: SMRI 11:51
PROVIDERS: Referring Provider Nurse Practitioner; Visit Provider Nurse Practitioner
DX: R90.81 Abnormal echoencephalogram (principal); G37.9 Demyelinating disease of central nervous system, unspecified
CPT/HCPCS: 70551

== ENCOUNTER 2025-08-19 09:10 | Outpatient (RCR) | payer MEDICAID, SELFPAY ==
--- NOTE | 2025-08-19 09:43 | PT.OIERPT ---
PT OP Initial Eval Patient Information Outpatient Physical Therapy Treatment Date: 08/19/25 Visit Reasons: DDD Medical Diagnosis: M50.30 M54.16 Start of Care: 08/19/25 Date of Onset: 1 yr ago Smoking Status Smoking Status: Never smoker Initial Assessment Subjective: Pt is 64 yr old female who c/o neck and LBP. She reports intense shooting pain in the low back that runs down into the glutes and then it makes the LE's feel weak. The R LE is weaker since 2021 when she got a sharp pain in the LB and then it stayed in the R leg and she points to the R quad. The R calf mm is numb. The neck hurts to turn side to side and she points to the top of the R shoulder where it hurts. PMH: CHF, DM, HTN, hypothoroidism Imaging: Xray of L/S Grade 1-2 anterolisthesis L5 on S1, Moderate degenerative disc disease L3-L4, L4-L5, Advanced degenerative disc disease L5-S1 Pt goal: to get rid of the pain Objective: BP: 147/71 C/S AROM: ? Ext 50% with pain at end-range ? Flexion full with slight onset of ssx ? L rotation: 80% ? R rotation: 80% ? B SB: 25 deg ? TTP: moderate of lower C/S paraspinals around C4-7 and UT?s Nicole-hallpike: negative to the R Assessment: Pt presents with cervical rotation pain consistent with DDD. She gets dizzy in sitting and standing but [place]-Hallpike testing was negative. Pt would benefit from skilled therapy for the neck pain but not for the L/S due to the spondylolisthesis and L5-S1 DDD. She is changing insurances soon and we will wait to start therapy for the neck until then. 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
== END 2025-09-10 23:59 | disposition home or self-care (01) ==
LOC: CPTX 09:10
PROVIDERS: PCP Physician Assistant; Referring Provider Physician Assistant; Visit Provider Physician Assistant
DX: M51.17 Intervertebral disc disorders with radiculopathy, lumbosacral region (principal)
CPT/HCPCS: 97162